=== PATIENT | male | born 1995 | race Caucasian/White ===

== ENCOUNTER 2017-04-10 10:35 | Outpatient (CLI) | payer BC ==
--- NOTE | 2017-04-10 12:17 | ULT ---
ULTRASOUND GALLBLADDER RIGHT UPPER QUADRANT: Date: 04/10/17 HISTORY: Right upper quadrant pain since Sunday. Patient had a CT done at an outside facility on Sunday. COMPARISON: None. TECHNIQUE: Real-time Calderon scale and color evaluation of the right upper quadrant of the abdomen was done with a curvilinear transducer. FINDINGS: Visualized portions of the pancreas are unremarkable. Aorta and IVC are unremarkable where visualize d. Liver measures 14.4 cm in length with normal hepatic echotexture. Main portal vein is patent with an tegrade flow. Gallbladder is normal. Gallbladder wall thickness is less than 2.0 mm. No cholelithiasis. Right kidney measures 10.3 x 3.9 x 4.4 cm, without mass, hydronephrosis, or abnormal calcifications. Sonographic Bergman's sign is negative according to the technologist's notes in [facility]. IMPRESSION: No evidence of cholecystitis or cholelithiasis. Normal exam. POS: [facility]
== END 2017-04-10 10:36 | disposition home or self-care (01) ==
LOC: ULT 10:35
PROVIDERS: ATTEND Specialist
DX: K80.00 Calculus of gallbladder with acute cholecystitis without obstruction (principal); R10.11 Right upper quadrant pain
CPT/HCPCS: 76705

== ENCOUNTER 2017-04-10 16:25 | Inpatient (IN) | payer BC ==
[~2017-04-10 16:25] MED LIST changes: +ISOVUE-370 76%-LOCM 1 ML ONE; -Ketorolac Tromethamine 30 MG/ML VIAL ONE; -Piperacillin/Tazobactam 3.375 GM in Sodium Chloride 0.9% 100 ML IVPB SCH
[2017-04-10] MEDS ORDERED: Dextrose 5% in Water 1,000 ML IV PRN (16:39)
[2017-04-10] MEDS ORDERED: Ondansetron HCl/PF 4 MG/2 ML Vial IVP PRN (16:39)
[2017-04-10] MEDS ORDERED: Dextrose 50% Abboject 50 ML SYRINGE SLOW IVP PRN (16:39)
[2017-04-10] MEDS ORDERED: Ondansetron ODT 4 MG TAB PO PRN (16:39)
[2017-04-10 17:15] LABS: #Basophils 0.1 thou/uL (0.0-0.2); #Eosinphils 0.1 thou/uL (0.0-0.7); #Lymphocytes 1.5 thou/uL (1.20-3.40); #Monocytes 0.6 thou/uL (0.11-0.59); %Basophils 0.8 % (0.0-1.0); %Eosinophils 1.4 % (0.0-10.0); %Lymphocytes 18.2 % (28.0-48.0); %Monocytes 6.6 % (0.0-4.0); Hematocrit 46.4 % (42.0-52.0); Red Blood Cell (RBC) Count 5.06 mill/uL (4.00-5.20); White Blood Cell (WBC) Count 8.3 thou/uL (4.8-10.8)
[2017-04-10 17:35] LABS: ALT (SGPT) 14 U/L (8-55); AST (SGOT) 14 U/L (10-45); Alkaline Phosphatase 74 U/L (Less than 750); Anion Gap 16 mmol/L (10-20); BUN (Urea Nitrogen) 13 mg/dL (8.4-21.0); Bilirubin, Total 0.7 mg/dL (0.2-1.2); Calc. Creatinine Clearance 0 mL/min (70-130); Calcium 9.9 mg/dL (7.8-10.44); Carbon Dioxide 24 mmol/L (22-29); Chloride 104 mmol/L (98-107); Estimated GFR-MDRD Greater than 90; Globulin 2.6 g/dL (2.4-3.5); Protein, Total 7.4 g/dL (6.0-8.3)
[2017-04-10 18:07] VITALS: BMI 21.7
[2017-04-10] MEDS: Pantoprazole 40 MG VIAL IVP SCH (19:31)
[2017-04-10] MEDS: Ketorolac Tromethamine 30 MG/ML VIAL IVP SCH (19:31)
[2017-04-10] MEDS: Lactated Ringer's 1,000 ML IV SCH (19:31)
[2017-04-10] MEDS: Acetaminophen 1,000 MG in Premix Bag 1 BAG IVPB SCH (20:15)
--- NOTE | 2017-04-10 20:18 | CT ---
ABDOMEN AND PELVIC CT WITH CONTRAST 04/10/17 INDICATION: Right lower quadrant pain. FINDINGS: Imaged lung bases are clear. There is retained fecal material throughout the colon. There is a mrati l caliber partially contrast and air filled appendix. No acute pathology of the solid abdominal orga ns. No free air. Osseous structures are intact. There is moderate distention of the urinary bladder. There are a few increased in size lymph nodes of right lower quadrant. IMPRESSION: 1. Normal caliber appendix without CT evidence of acute appendicitis. 2. Mildly prominent right lower quadrant lymph nodes may reflect mesenteric adenitis. Correlate clinically. POS: [facility]
[2017-04-10] MEDS ORDERED: Magnesium Citrate 300 ML BOT PO SCH (20:45)
[2017-04-10] MEDS ORDERED: Enoxaparin Sodium 40 MG/0.4 ML SYRINGE SC SCH (21:00)
[2017-04-10] MEDS: Polyethylene Glycol 3350 17 GM Packet PO SCH (21:19)
[2017-04-10] MEDS: Citrucel 500 MG TAB PO SCH (21:20)
--- NOTE | 2017-04-10 22:02 | CON ---
GI INPATIENT CONSULTATION NOTE DATE OF CONSULTATION: 04/10/2017 REQUESTING PHYSICIAN: Dr. Yoon. REASON FOR CONSULTATION: Abdominal pain. 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 He has had no abdominal surgeries. He takes no medicati ons. He denies any NSAID use. He has no chronic gastrointestinal symptoms, but last Denny, which was four days ago, he had the fairly acute onset of new pain in the epigastrium and right upper quad rant. This has been somewhat waxing and waning, but essentially constant, since that time, oral int jenni will dramatically worsen the severity of his pain. There has been some nausea as well, though n o vomiting with this. He went to the [facility] Emergency Department a couple of nights ago and had lab work, which was essentially unrevealing showing normal LFTs normal, normal amylase and marti l CBC. He had a CT of the abdomen and pelvis and there was a questionable finding of possible small gallbladder stones, but no evidence of ductal dilation. He was referred to Dr. Yoon who had tent atively planned him for cholecystectomy this morning; however, an abdominal ultrasound performed thi s morning really showed no evidence of cholelithiasis, normal appearing gallbladder with a normal ex am and thus cholecystectomy was canceled. The patient was sent home, but unfortunately had exacerba tion of his pain symptoms prompting readmission to the hospital this afternoon. The patient does no t smoke or drink alcohol. He reports that his bowel movements have remained normal throughout. The re was no diarrhea or constipation. No melena or hematochezia. No fever along with this. REVIEW OF SYSTEMS: Full review of systems including constitutional, head, eyes, ears, nose, throat, GI, , cardiovascular, respiratory, musculoskeletal, and neurologic systems is negative except as noted in the HPI. PAST MEDICAL HISTORY: None. PAST SURGICAL HISTORY: Tonsillectomy, adenoidectomy, nasal surgery and sinus surgery. ALLERGIES: No known drug allergies. OUTPATIENT MEDICATIONS: None. INPATIENT MEDICATIONS: Morphine p.r.n., Zofran p.r.n., Protonix 40 mg IV q.12 hours started this ev ening. SOCIAL HISTORY: No smoking, alcohol or drug use. FAMILY HISTORY: Noncontributory. PHYSICAL EXAMINATION: GENERAL: A 21-year-old man lying in bed comfortably in no acute distress. SKIN: No jaundice, no rash visible or palpable. EYES: No scleral icterus. Extraocular movements intact. ENT: Mucous membranes moist. No oral lesions. LYMPH: No submandibular or supraclavicular lymphadenopathy. THYROID: Nontender to palpation. HEART: Regular rate and rhythm. LUNGS: Clear to auscultation bilaterally. ABDOMEN: Bowel sounds present. The abdomen is nondistended and soft. There is tenderness to palpa tion in the epigastrium, right upper quadrant and a little bit in the right lower quadrant, but no g uarding or rebound tenderness. No masses or organomegaly appreciated. EXTREMITIES: No peripheral edema. VESSELS: Radial pulses 2+ bilaterally. NEUROLOGICAL: Cranial nerves II-XII intact bilaterally. No focal deficits. LABORATORY STUDIES: Labs were drawn a couple of nights ago in the [facility] Emergency Room. This d emonstrated WBC of 9.5, hemoglobin 13.5 and platelets 285. AST only 25, total bilirubin only 0.8, a mylase is only 22, sodium 141, potassium 4.2, BUN 16 and creatinine 0.9. IMAGING STUDIES: CT of the abdomen and pelvis was a noncontrast study on 04/06/2017 and demonstrate d a possible small gallstone with no evidence of ductal dilation. Abdominal ultrasound from earlier today 04/10/2017 was a normal exam. No evidence of cholelithiasis or gallbladder wall thickening. Normal common bile duct. ASSESSMENT: 1. Epigastric pain. 2. Right upper quadrant pain. 3. Nausea. PLAN: I agree that biliary etiology seems a little bit less likely given the normal abdominal ultra sound, normal liver function tests and normal amylase. Labs to be repeated and we will await those results. I discussed the case with Dr. Yoon. He is going to repeat an abdominal CT scan this georgina nain, so we will await that result. I think the next step in investigation would be an EGD to evalu ate for upper GI mucosal pathology such as gastritis or peptic ulcer disease. I spoke with the arnoldo ent, he desires to proceed with this. We will schedule EGD for tomorrow. Further recommendations f olcaryling endoscopy. Thank you for the consultation. Please call with questions or concerns.
[2017-04-11] MEDS: Ketorolac Tromethamine 30 MG/ML VIAL IVP SCH ×3 (00:13→13:34)
--- NOTE | 2017-04-11 00:17 | HP ---
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 Today is Sunday. On Sunday, patient began having epigastric right upper quadrant pain. The patient reported to the [facility] Emergency Room. An IV contrast without oral contrast CAT sc an obtained revealed questionable 2-3 mm density in his gallbladder, questionable for stone, bile du ct was otherwise unremarkable, inferior vena cava was on the left side of the aorta and there was no evidence of appendicitis. The appendix was not visualized. There were no inflammatory changes. L iver function tests were normal. White count 9 and hemoglobin 13. The patient over the weekend too k tramadol for discomfort as well as Tylenol. I saw him in the office yesterday morning. He was dyson ving persistent right abdominal pain, right lateral mid abdomen, right upper quadrant. Because of t he questionable gallstone finding on CAT scan, ultrasound of the gallbladder was obtained today and was unremarkable. The patient was seen in preoperative holding (he was to be seen in my office afte r the ultrasound, but instead he was directed to the preoperative holding area, anticipating possibl e cholecystectomy). Patient was informed that it was a normal gallbladder ultrasound and we did not think it was his gallbladder causing problems. He did not have any past episodes of biliary compla ints. Patient is in the core, very physically active and in fact have lost 15-20 pounds since being on the core. This morning, I gave the patient the option of undergoing an upper endoscopy, but he declined feeling he was doing better. He went home back to his dorm, was having quite a bit of pain , called his mother, and his mother suggested he go to [facility]. I was called from [facility], and since he was having so much pain, it was suggested he return to the hospital for adm ission for aggressive workup for the etiology of the pain. See his recent history and physical for details. PHYSICAL EXAMINATION: LUNGS: Clear to auscultation. CARDIAC: Regular rate and rhythm without murmur or gallop. ABDOMEN: Soft, nondistended, mild guarding right lower quadrant. No peritoneal signs. Mild tender ness at McBurney's point. Mild tenderness in epigastric. ASSESSMENT AND PLAN: Abdominal pain of uncertain etiology. We will repeat his laboratories. We wi ll obtain a full CAT scan including oral contrast (he did not have oral contrast in the emergency ro om freestanding). I have discussed his CAT scan with the radiology reading it initially today. We have reviewed the CAT scan, he had minimal amount of stool, no findings consistent with appendicitis and had the questionable density in his gallbladder 2-3 mm. It may be artifact and Bell was with a normal ultrasound, dedicated gallbladder. Repeat CAT scan, repeat labs, await Gastroenterology op inion, consider upper endoscopy, pending CAT scan findings.
[2017-04-11] MEDS: Acetaminophen 1,000 MG in Premix Bag 1 BAG IVPB SCH ×3 (00:21→13:32)
[2017-04-11] MEDS: Lactated Ringer's 1,000 ML IV SCH ×2 (03:48→08:45)
[2017-04-11] MEDS ORDERED: Magnesium Citrate 300 ML BOT PO SCH (07:00)
[2017-04-11] MEDS: Citrucel 500 MG TAB PO SCH (08:45)
[2017-04-11] MEDS: Polyethylene Glycol 3350 17 GM Packet PO SCH (08:45)
[2017-04-11] MEDS: Pantoprazole 40 MG VIAL IVP SCH (08:45)
[2017-04-11] MEDS ORDERED: Polyethylene Glycol 3350 17 GM Packet PO SCH (09:00)
--- NOTE | 2017-04-11 10:22 | RAD ---
KUB AND UPRIGHT: History: Abdominal pain. FINDINGS: The bowel gas pattern is nonobstructed. No free air. No radiopaque calculi or bony findings. IMPRESSION: No acute findings. POS: [facility]
--- NOTE | 2017-04-11 11:06 | PRG ---
DATE OF SERVICE: 04/11/2017 Tay Yoder underwent a CAT scan of the abdomen and pelvis yesterday p.o. and IV contrast. This reveals significant constipation, cecum, ascending, hepatic flexure, colon. Patient received magnesi um citrate last night b.i.d., MiraLax b.i.d., Citrucel, received another dose of mag citrate this mor nain. Repeat abdominal x-rays this morning compared to his CAT scan revealed decreased stool in the right colon. The patient reports dirty liquid stool, had magnesium citrate this morning. He is awai ting EGD. He reports persistent epigastric right upper quadrant pain, right lateral abdominal pain, the lesser severity. Abdominal exam is softer, less tender, although tender in the area described. Vital signs remained stable overnight. He is afebrile. The patient is scheduled to have an EGD toda y, probably to be performed by Dr. Yohan Calderon. I have talked to the patient consideration for colono scopy. Considering the distribution of his discomfort, we will discuss with Gastroenterology and joselin jones that to their decision to him. No surgically apparent problem at this time. Await GI input and e ndoscopy.
[2017-04-11] MEDS ORDERED: GoLYTELY 4,000 ml Bottle PO ONE (12:45)
[2017-04-11] MEDS ORDERED: Fentanyl 100 MCG/2 ML VIAL ONE (13:38)
[2017-04-11] MEDS ORDERED: Propofol 200 MG/20 ML VIAL ONE (16:17)
[2017-04-11 17:42] VITALS: BP 133/78; TEMP 98.2
--- NOTE | 2017-04-11 18:33 | OP ---
DATE OF PROCEDURE: 04/11/2017 SURGEON: Dr. Yohan Calderon OPERATIVE PROCEDURE: 1. Esophagogastroduodenoscopy. 2. Colonoscopy. PREOPERATIVE DIAGNOSIS: Right upper quadrant pain and right lower quadrant pain. PROCEDURE: After informed consent was obtained, the patient was placed in the left lateral decubitus position. Anesthesia was administered per the Anesthesia Department. Forward viewing endoscope was inserted into the esophagus under direct visualization with ease and passed to the second portion of the duodenum with ease. Second portion of the duodenum and duodenal bulb were normal. Pylorus, ant rum, body, fundus, and cardia were normal. Retroflexion in the stomach was normal. Esophagus was no rmal throughout. ASSESSMENT: Normal esophagogastroduodenoscopy. RECOMMENDATIONS: Proceed with colonoscopy. PROCEDURE: After informed consent was obtained, the patient was placed in the left lateral decubitus position. Anesthesia was administered per the Anesthesia Department. Forward viewing endoscope was inserted into the rectum after perianal inspection and rectal exam were normal. It was passed to th e cecum and into the ileum with ease. The cecum, ileocecal valve, and appendiceal orifice were marti l. The prep was excellent. The terminal ileum was normal. The ascending, transverse, descending, s igmoid, and rectum were normal. Retroflexion in rectum was normal. ASSESSMENT: Normal ileal colonoscopy. RECOMMENDATIONS: 1. Feeding trial. 2. Home soon.
--- NOTE | 2017-04-13 06:09 | DIS ---
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 He has lost 20 pounds because of physical conditioning associated with the [employer]. He developed abdomina l pain, epigastric right upper quadrant, presented to the [facility] Room, this was on . Laboratories noted to be normal. CAT scan without oral contrast but with and without IV contrast obtained revealing questionable cholelithiasis. The patient was sent to my office and I saw him on Sunday. He reports normal bowel movements. He had mild tenderness in his right upper quadrant, righ t gutter. He was scheduled for an ultrasound the next day, which was obtained and after that ultraso und, the patient was to report to my office. The patient came to my office, but my office personnel referred him to the hospital as we had a tentative laparoscopic cholecystectomy pending ultrasound re sults. HOSPITAL COURSE: I saw him in preoperative holding and ultrasound of his gallbladder was normal. He was still having some moderate amount of pain, but it seemed to be improved. I discussed with him o btaining an EGD on that time, but he declined and his IV was removed. He was discharged home and sun refunded. The patient went home. I was called by [facility] that the patient at home was having increased pain, called his [facility] er and went to [facility]. From [facility], he was directly admitted to the hospital. Abd ominal x-rays revealed quite a bit of stool in the right colon. CAT scan of the abdomen and pelvis w ith p.o. and IV contrast obtained and revealed quite a bit of stool in the right colon and proximal t ransverse colon. His initial CAT scan 4 days prior did not reveal such great amount of stool I did n ot think. I discussed the CAT scan with the radiologist at [facility] and there was a 2-3 mm focus questionably artifact. It was felt that his thin physique and young age is unlikely to get biliary disease. Consultation with Dr. Chen was made and the next day Dr. Calderon performed an uppe r and lower endoscopy, both of which were normal. After undergoing the magnesium citrate the night b efore the colonoscopy, magnesium citrate the morning of colonoscopy, and GoLYTELY the day of the colo noscopy, he experienced pain relief. By the time of postoperative recovery, he did not have any pain at all. He is tolerating his diet, was discharged home. He will follow up with me as needed. Jason mmendations were he eat a high-fiber diet, avoid fatty, low-processed food, and take MiraLax and/or f iber daily. He will return to see me as needed. DISCHARGE DIAGNOSIS: Constipation accounting for abdominal pain, resolved after magnesium citrate 2 bottles and GoLYTELY.
== END 2017-04-11 18:45 | disposition home or self-care (01) | DRG 392 ==
LOC: 3SE 16:25
PROVIDERS: ADMIT Specialist; ATTEND Specialist
PROC: 0DJ08ZZ Inspection of Upper Intestinal Tract, Via Natural or Artificial Opening Endoscopic (ICD-10-PCS; principal; 2017-04-11)
PROC: 0DJD8ZZ Inspection of Lower Intestinal Tract, Via Natural or Artificial Opening Endoscopic (ICD-10-PCS; 2017-04-11)
DX: K59.00 Constipation, unspecified (principal); R93.2 Abnormal findings on diagnostic imaging of liver and biliary tract
CPT/HCPCS: 36415; 74020; 74177; 76705; 80053; 85025; A4216; C9113; J0131; J1650; J1885; J2543; J2704; J3010; J7050

== ENCOUNTER → 2017-04-10 | Day surgery (SDC) | payer BC ==
[2017-04-09 17:23] VITALS: BMI 21.7
--- NOTE | 2017-04-09 23:00 | HP ---
HISTORY OF PRESENT ILLNESS: Mr. 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 CT scan of the abdomen and pelvis with and without IV contrast revealed questionable small stones in the gallbl adder. There is no ductal dilatation. Inferior vena cava is on the left side of the aorta without evidence of appendicitis. Patient had laboratories that were normal. Urinalysis normal. Amylase n ormal at 22, AST 25 and total bilirubin 0.8. White count 9.5, hemoglobin 13.5 and platelet count 28 5,000. Sodium 141, potassium 4.2, chloride 102, glucose 92, BUN 16 and creatinine 0.9. Patient was felt to be tender in his right upper quadrant and epigastrium. He reports to my office today. Ult rasound is scheduled tomorrow morning and the patient desires laparoscopic cholecystectomy soon as p ossible because he cannot function well in school. ALLERGIES: None. TOBACCO: None. ALCOHOL: None. MEDICATIONS: None. PAST MEDICAL HISTORY: Noncontributory. PAST SURGICAL HISTORY: Tonsillectomy, adenoidectomy, nasal surgery and sinus surgery. REVIEW OF SYSTEMS: Ten-point noncontributory. PHYSICAL EXAMINATION: VITAL SIGNS: Weighs 152 pounds. Height is 5 feet 9 inches. Blood pressure 124/78, pulse 70 and te mperature 98.8 degrees. HEENT: Unremarkable. Sclerae nonicteric. NECK: Without lymphadenopathy. LUNGS: Clear to auscultation. CARDIAC: Regular rate and rhythm without murmur or gallop. ABDOMEN: Soft. Tenderness in his right upper quadrant with mild guarding. EXTREMITIES: Unremarkable. SKIN: Nonjaundiced axilla or groins. EXTREMITIES: Without edema. ASSESSMENT AND PLAN: Symptomatic cholelithiasis and cholecystitis. He has ongoing pain since . We will obtain a gallbladder ultrasound, see my office tomorrow and subsequently plan laparoscop ic cholecystectomy if indicated. He understands the risks of infection, bleeding, reoperation, visc eral and biliary injury, possibility of open procedure and consents.
[~2017-04-10] MED LIST: Ketorolac Tromethamine 30 MG/ML VIAL ONE; Piperacillin/Tazobactam 3.375 GM in Sodium Chloride 0.9% 100 ML IVPB SCH
--- NOTE | 2017-04-10 13:26 | PRG ---
DATE OF SERVICE: 04/10/2017 Tay Yoder is a 21-year-old male who was seen at [facility] ER, CAT scan suggests gallsto sarwat, correlating with ultrasound suggested. Ultrasound obtained today revealed no gallstones, negat nessa sonographic Bergman's. The patient was instructed after the ultrasound to come to my office dire ctly which he did, but my front office personnel send him back to the OR without me seeing him. I t hen arrived in the preoperative holding area, he had an IV started and I discussed with him options. The patient is still having right upper quadrant discomfort. He has taken tramadol. I discussed with him the fact that he is not the usual body habitus or age of patient's to have gallbladder dise ase and that his ultrasound was normal with a negative sonographic Bergman sign. I do not think that he is having gallbladder problems and thus we should cancel the laparoscopic cholecystectomy. The etiologies for his discomfort include peptic ulcer disease. I have told him to not take NSAIDs (Advil, Aleve, ibuprofen) and take Tylenol for discomfort and to try to stop taking the Ultram. We have discussed consideration of upper endoscopy today why he has an IV in place versus empiric treat ment with H2 blockers, which he has elected to do. At this point, we will cancel the surgery. His abdomen is soft with mild discomfort, right upper quadrant, but no guarding or rebound. The plan is to avoid NSAIDs. I have prescribed Nexium 40 mg a day, 2 month supply refills, 3 refill s. Follow up in my office next week.
== END ==
LOC: SDC 11:15
PROVIDERS: ATTEND Specialist
DX: K27.9 Peptic ulcer, site unspecified, unspecified as acute or chronic, without hemorrhage or perforation (principal); Z53.8 Procedure and treatment not carried out for other reasons; Z90.89 Acquired absence of other organs; Z98.890 Other specified postprocedural states
CPT/HCPCS: J0131; J1885; J2543; J7050